=== PATIENT | male | born 1990 | race Hispanic/Latino ===

== ENCOUNTER 2017-12-23 10:07 | Emergency (ER) | payer BC ==
[2017-12-23 10:13] VITALS: BP 133/80; PULSE 83; RESP 18; TEMP 97.9
[2017-12-23 10:18] VITALS: O2SAT 98
--- NOTE | 2017-12-23 10:25 | ED PDOC ---
Upper Extremity Pain/Injury Time Seen by Provider: 12/23/17 10:17 Chief Complaint (Nursing): Upper Extremity Problem/Injury History Per: Patient Onset/Duration Of Symptoms: Days (1) Quality: Sharp Severity: Moderate Pain Scale Rating Of: 4 Exacerbating Factor(s): Movement Additional Complaint(s): Sharp pain and swelling left elbow while lifting weights last night . was bench pressing when he felt sudden sharp pain that radiated down left forearm assoc with swelling. Past Medical History Vital Signs: Last Vital Signs Temp 97.9 F 12/23/17 10:13 Pulse 83 12/23/17 10:13 Resp 18 12/23/17 10:13 BP 133/80 12/23/17 10:13 Pulse Ox 98 12/23/17 10:16 - Medical History PMH: No Chronic Diseases - Family History Family History: States: Unknown Family Hx - Home Medications Home Medications: Ambulatory Orders Medication Instructions Recorded Naproxen [Naprosyn] 500 mg PO Q12H #20 tab 12/23/17 traMADol [Ultram] 50 mg PO Q8 #10 tab 12/23/17 - Allergies Allergies/Adverse Reactions: Allergies Allergy/AdvReac Type Severity Reaction Status Date / Time No Known Allergies Allergy Verified 12/23/17 10:15 Review of Systems Constitutional: Negative for: Fever Musculoskeletal: Positive for: Arm Pain, Other (Elbow pain) Neurological: Negative for: Weakness, Numbness Physical Exam - Physical Exam Appears: Positive for: Non-toxic, No Acute Distress Extremity: Positive for: Other (Swelling and tenderness olecronon left elbow. FROM No erythema or warmth. No fov=vitaliy motor or sensory deficits distal to elbow.) - ECG O2 Sat by Pulse Oximetry: 98 Disposition - Clinical Impression Clinical Impression: Olecranon bursitis of left elbow - Patient ED Disposition Is Patient to be Admitted: No Counseled Patient/Family Regarding: Studies Performed, Diagnosis, Need For Followup, Rx Given - Disposition Referrals: Jamil Milton MD [Staff Provider] - Disposition: Routine/Home Disposition Time: 10:50 Condition: FAIR Prescriptions: Naproxen [Naprosyn] 500 mg PO Q12H #20 tab traMADol [Ultram] 50 mg PO Q8 #10 tab Instructions: Olecranon Bursitis Forms: [employer] (Montenegrin)
--- NOTE | 2017-12-23 11:36 | RAD ---
PROCEDURE: Radiographs of the left elbow. HISTORY: trauma COMPARISON: No priorAll. FINDINGS: BONES: Normal. No fracture. JOINTS: Normal. No osteoarthritis. SOFT TISSUES: Soft tissue swelling adjacent to the olecranon. JOINT EFFUSION: None. OTHER FINDINGS: None IMPRESSION: Soft tissue swelling without acute articular or osseous abnormality.
== END 2017-12-23 11:00 | disposition home or self-care (01) ==
LOC: H.ER 10:07
DX: M70.22 Olecranon bursitis, left elbow (principal)